=== PATIENT | male | born 1965 | race Caucasian/White ===

== ENCOUNTER 2017-12-02 23:39 | Inpatient (IN) | payer MEDICAID, OTHER ==
[2017-12-03] MEDS: SOD CHLORIDE 0.9% 1,000 ML IV ×3 (00:48→20:40)
[2017-12-03] MEDS: ONDANSETRON 4 MG INJ IV (00:48)
[2017-12-03 00:59] LABS: ALANINE AMINOTRANSFERASE 83 IU/L (13-69); ALBUMIN/GLOBULIN RATIO 0.71; ALKALINE PHOSPHATASE 653 IU/L (42-121); ANION GAP 13 (8-16); ASPARTATE AMINO TRANSFERASE 64 IU/L (15-46); BILIRUBIN,INDIRECT 0.7 mg/dl (0-1.1); BILIRUBIN,TOTAL 0.7 mg/dl (0.2-1.3); BLOOD UREA NITROGEN 11 mg/dl (7-20); CALCIUM 8.1 mg/dl (8.4-10.2); CARBON DIOXIDE 23 mmol/L (21-31); CHLORIDE 106 mmol/L (97-110); CREATININE 0.83 mg/dl (0.61-1.24); GLUCOSE 138 mg/dl (70-220); LIPASE 284 U/L (23-300); POTASSIUM 3.6 mmol/L (3.5-5.1); SODIUM 138 mmol/L (135-144); TOTAL PROTEIN 7.2 g/dl (6.1-8.1)
[2017-12-03 01:07] LABS: ADD UMIC YES; UR ASCORBIC ACID NEGATIVE (NEGATIVE); UR BACTERIA FEW /HPF (NONE SEEN); UR BILIRUBIN (Dip) NEGATIVE (NEGATIVE); UR BLOOD (Dip) NEGATIVE (NEGATIVE); UR CALCIUM OXALATE CRYSTAL MANY /HPF (NONE SEEN); UR CLARITY SLIGHTLY CLOUDY (CLEAR); UR COLOR AMBER (YELLOW); UR GLUCOSE (Dip) NEGATIVE (NEGATIVE); UR KETONES (Dip) NEGATIVE (NEGATIVE); UR LEUKOCYTE ESTERASE (Dip) NEGATIVE Leu/ul (NEGATIVE); UR MUCUS MODERATE /HPF (NONE SEEN); UR NITRITE (Dip) NEGATIVE (NEGATIVE); UR RBC 2 /HPF (0-5); UR SPECIFIC GRAVITY (Dip) 1.025 (1.003-1.030); UR TOTAL PROTEIN (Dip) 1+ mg/dl (NEGATIVE); UR UROBILINOGEN (Dip) 1+ mg/dL (NEGATIVE); UR WBC 0 /HPF (0-5)
[2017-12-03 01:08] LABS: ABNORMAL IP MESSAGE 1; MEAN CORPUSCULAR HEMOGLOBIN 19.5 pg (29.0-33.0); MEAN CORPUSCULAR HGB CONC 27.6 g/dl (32.0-37.0); MEAN CORPUSCULAR VOLUME 70.8 fl (82.0-101.0); MEAN PLATELET VOLUME 10.1 fl (7.4-10.4); PLATELET COUNT 217 10^3/UL (140-415); POSITIVE DIFF @See below; RED BLOOD COUNT 3.53 10^6/ul (4.70-6.10); RED CELL DISTRIBUTION WIDTH 18.4 % (11.5-14.5)
[2017-12-03 01:08] LABS: WHITE BLOOD COUNT 6.1 10^3/ul (4.8-10.8)
[2017-12-03 01:12] LABS: HEMOGLOBIN 6.9 g/dl (14.0-18.0)
[2017-12-03 01:13] LABS: ADD MAN DIFF? YES; PATH REVIEW? YES
[2017-12-03 01:31] LABS: INR 1.08; PROTIME 14.1 Sec (11.9-14.9); PT RATIO 1.1
[2017-12-03 02:51] LABS: ANISOCYTOSIS 2+ (0-0); BAND NEUTROPHILS % (M) 1 % (0-4); BASOPHILS % (M) 1 % (0-2); EOSINOPHILS % (M) 1 % (0-7); GIANT THROMBO% (M) 1 % (0-0); HYPOCHROMASIA 2+ (0-0); LYMPHOCYTES #M 0.9 10^3/ul (0.8-2.9); LYMPHOCYTES % (M) 16 % (15-51); MICROCYTOSIS 2+ (0-0); MONOCYTE #M 0.2 10^3/ul (0.3-0.9); MONOCYTES % (M) 4 % (0-11); MYELOCYTES % (M) 1 % (0-0); PLATELET ESTIMATE NORMAL; POIKILOCYTOSIS 1+ (0-0); SEG NEUT #M 4.6 10^3/ul (1.6-7.5); SEGMENTED NEUTROPHILS (M) % 75 % (39-77); SMUDGE%M 2 % (0-0)
[2017-12-03 03:08] LABS: PARTIAL THROMBOPLASTIN TIME 31.6 Sec (25.0-35.0)
[2017-12-03 03:32] LABS: IMMEDIATE SPIN CROSSMATCH 1 2
[2017-12-03] MEDS ORDERED: NACL 0.9% 3 ML SYG IV (04:00)
[2017-12-03] MEDS ORDERED: METHYLPREDNISOLONE 125 MG INJ IV (04:00)
[2017-12-03] MEDS ORDERED: ONDANSETRON 4 MG INJ IV (04:00)
[2017-12-03] MEDS ORDERED: ACETAMINOPHEN 325 MG TAB PO (04:00)
[2017-12-03 04:21] LABS: AMMONIA < 9 umol/l (9-30)
[2017-12-03 06:03] LABS: ADD MAN DIFF? NO; HAAIG REFLEX REFLEX FILED
[2017-12-03 06:15] LABS: ABNORMAL IP MESSAGE 1; BASOPHILS % 0.6 % (0.0-2.0); EOSINOPHILS # 0.1 10^3/ul (0.0-0.5); EOSINOPHILS % 1.8 % (0.0-7.0); HEMATOCRIT 26.5 % (42.0-52.0); HEMOGLOBIN 7.4 g/dl (14.0-18.0); LYMPHOCYTES # 1.3 10^3/ul (0.8-2.9); LYMPHOCYTES % 25.2 % (15.0-51.0); MEAN CORPUSCULAR HEMOGLOBIN 19.9 pg (29.0-33.0); MEAN CORPUSCULAR HGB CONC 27.9 g/dl (32.0-37.0); MEAN CORPUSCULAR VOLUME 71.2 fl (82.0-101.0); MEAN PLATELET VOLUME 10.5 fl (7.4-10.4); MONOCYTE # 0.7 10^3/ul (0.3-0.9); MONOCYTES % 13.3 % (0.0-11.0); NEUTROPHILS % 58.9 % (39.0-77.0); PLATELET COUNT 210 10^3/UL (140-415); POSITIVE DIFF @See below; RED BLOOD COUNT 3.72 10^6/ul (4.70-6.10); RED CELL DISTRIBUTION WIDTH 18.9 % (11.5-14.5)
[2017-12-03] MEDS: PANTOPRAZOLE (EC) 40 MG TAB PO (06:38)
[2017-12-03 06:44] LABS: ALBUMIN/GLOBULIN RATIO 0.76; ALKALINE PHOSPHATASE 576 IU/L (42-121); ANION GAP 13 (8-16); ASPARTATE AMINO TRANSFERASE 56 IU/L (15-46); BILIRUBIN,INDIRECT 1.3 mg/dl (0-1.1); BILIRUBIN,TOTAL 1.3 mg/dl (0.2-1.3); BLOOD UREA NITROGEN 10 mg/dl (7-20); CALCIUM 7.8 mg/dl (8.4-10.2); CARBON DIOXIDE 23 mmol/L (21-31); CHLORIDE 107 mmol/L (97-110); CHOL/HDL RATIO 4.9 RATIO; CHOLESTEROL 114 mg/dl (100-200); CREATININE 0.75 mg/dl (0.61-1.24); GLUCOSE 115 mg/dl (70-220); HDL CHOLESTEROL 23 mg/dl (28-71); LDL CHOLESTEROL,CALCULATED 79 mg/dl; POTASSIUM 3.5 mmol/L (3.5-5.1); SODIUM 139 mmol/L (135-144); TOTAL PROTEIN 6.9 g/dl (6.1-8.1); TRIGLYCERIDES 59 mg/dl (0-149)
[2017-12-03 06:46] LABS: C-REACTIVE PROTEIN 4.9 mg/dl (0.0-0.9)
[2017-12-03 07:09] LABS: HEMOGLOBIN A1C 5.4 % (0-5.9)
[2017-12-03 07:51] LABS: ERYTHROCYTE SEDIMENTATION RATE 27 mm/Hr (0-20)
[2017-12-03 07:56] LABS: HEPATITIS B SURFACE ANTIGEN NEGATIVE (NEGATIVE)
[2017-12-03 07:59] LABS: ALANINE AMINOTRANSFERASE 75 IU/L (13-69)
[2017-12-03 08:12] LABS: HEPATITIS B SURFACE ANTIBODY POSITIVE (NEGATIVE)
[2017-12-03 08:14] LABS: HEPATITIS B CORE ANTIBODY NEGATIVE (NEGATIVE); HEPATITIS C VIRAL ANTIBODY NEGATIVE (NEGATIVE)
[2017-12-03 08:31] LABS: THYROID STIMULATING HORMONE 0.923 MIU/L (0.465-4.680)
[2017-12-03] MEDS ORDERED: MESALAMINE (SR) 250 MG CAP PO (09:00)
[2017-12-03 09:35] LABS: ALPHA FETOPROTEIN 1.52 IU/L (0.00-7.21)
[2017-12-03] MEDS: morphine 2 MG INJ IV (10:44)
[2017-12-03] MEDS: ASCORBIC ACID 500 MG TAB PO (10:44)
[2017-12-03] MEDS ORDERED: METHYLPREDNISOLONE 40 MG INJ IV (12:00)
[2017-12-03] MEDS: SOD CHLORIDE 0.9% 250 ML IV (12:02)
[2017-12-03] MEDS: BISACODYL (EC) 5 MG TAB PO (13:52)
[2017-12-03 16:49] LABS: OCCULT BLOOD STOOL POSITIVE (NEGATIVE)
[2017-12-03 18:07] LABS: ADD MAN DIFF? NO
[2017-12-03] MEDS: POLYETHYLENE GLYCOL 3350 119 GM POWDER PO (18:07)
[2017-12-03 18:08] LABS: ABNORMAL IP MESSAGE 1; BASOPHIL # 0.1 10^3/ul (0.0-0.1); BASOPHILS % 0.7 % (0.0-2.0); EOSINOPHILS # 0.3 10^3/ul (0.0-0.5); EOSINOPHILS % 3.8 % (0.0-7.0); HEMATOCRIT 31.1 % (42.0-52.0); HEMOGLOBIN 8.8 g/dl (14.0-18.0); LYMPHOCYTES # 1.5 10^3/ul (0.8-2.9); MEAN CORPUSCULAR HEMOGLOBIN 20.6 pg (29.0-33.0); MEAN CORPUSCULAR HGB CONC 28.3 g/dl (32.0-37.0); MEAN CORPUSCULAR VOLUME 72.7 fl (82.0-101.0); MEAN PLATELET VOLUME 9.3 fl (7.4-10.4); MONOCYTE # 0.8 10^3/ul (0.3-0.9); MONOCYTES % 10.7 % (0.0-11.0); NEUTROPHIL # 4.8 10^3/ul (1.6-7.5); NEUTROPHILS % 64.5 % (39.0-77.0); PLATELET COUNT 208 10^3/UL (140-415); POSITIVE DIFF @See below; RED BLOOD COUNT 4.28 10^6/ul (4.70-6.10); RED CELL DISTRIBUTION WIDTH 19.9 % (11.5-14.5)
[2017-12-03 18:08] LABS: WHITE BLOOD COUNT 7.4 10^3/ul (4.8-10.8)
[2017-12-03] MEDS: MAGNESIUM CITRATE 300 ML BTL PO (18:12)
[2017-12-04 00:47] LABS: ADD MAN DIFF? NO
[2017-12-04 00:48] LABS: WHITE BLOOD COUNT 6.2 10^3/ul (4.8-10.8)
[2017-12-04 00:49] LABS: ABNORMAL IP MESSAGE 1; BASOPHILS % 0.6 % (0.0-2.0); EOSINOPHILS # 0.3 10^3/ul (0.0-0.5); HEMOGLOBIN 8.5 g/dl (14.0-18.0); LYMPHOCYTES # 1.2 10^3/ul (0.8-2.9); LYMPHOCYTES % 19.2 % (15.0-51.0); MEAN CORPUSCULAR HEMOGLOBIN 20.4 pg (29.0-33.0); MEAN CORPUSCULAR HGB CONC 28.3 g/dl (32.0-37.0); MEAN CORPUSCULAR VOLUME 72.1 fl (82.0-101.0); MEAN PLATELET VOLUME 9.9 fl (7.4-10.4); MONOCYTE # 0.6 10^3/ul (0.3-0.9); MONOCYTES % 9.2 % (0.0-11.0); NEUTROPHIL # 4.1 10^3/ul (1.6-7.5); NEUTROPHILS % 65.7 % (39.0-77.0); PLATELET COUNT 218 10^3/UL (140-415); POSITIVE DIFF @See below; RED BLOOD COUNT 4.16 10^6/ul (4.70-6.10); RED CELL DISTRIBUTION WIDTH 19.4 % (11.5-14.5)
[2017-12-04] MEDS: morphine 2 MG INJ IV ×2 (01:09→10:44)
[2017-12-04] MEDS: SOD CHLORIDE 0.9% 1,000 ML IV ×2 (01:10→23:38)
[2017-12-04] MEDS: POLYETHYLENE GLYCOL 3350 119 GM POWDER PO (06:25)
[2017-12-04] MEDS: PANTOPRAZOLE (EC) 40 MG TAB PO (06:26)
[2017-12-04] MEDS: BISACODYL (EC) 5 MG TAB PO (08:19)
[2017-12-04] MEDS: ASCORBIC ACID 500 MG TAB PO (08:19)
[2017-12-04] MEDS: PROPOFOL 60 ML (14:22)
[2017-12-04] MEDS: LIDOCAINE 2% (SDV) 5 ML INJ (14:22)
[2017-12-04] MEDS: MESALAMINE 4 GM/60 ML ENEMA PR (21:15)
[2017-12-04] MEDS: morphine LIQ (10 MG/5 ML) CUP PO (21:16)
[2017-12-05] MEDS: ZOLPIDEM 5 MG TAB PO (00:12)
[2017-12-05] MEDS: PANTOPRAZOLE (EC) 40 MG TAB PO (06:14)
[2017-12-05] MEDS: morphine LIQ (10 MG/5 ML) CUP PO ×2 (06:18→11:18)
[2017-12-05 08:20] LABS: ADD MAN DIFF? NO
[2017-12-05 08:26] LABS: WHITE BLOOD COUNT 4.6 10^3/ul (4.8-10.8)
[2017-12-05 08:26] LABS: ABNORMAL IP MESSAGE 1; BASOPHILS % 0.7 % (0.0-2.0); EOSINOPHILS # 0.2 10^3/ul (0.0-0.5); EOSINOPHILS % 3.5 % (0.0-7.0); HEMATOCRIT 27.9 % (42.0-52.0); HEMOGLOBIN 8.2 g/dl (14.0-18.0); LYMPHOCYTES # 0.8 10^3/ul (0.8-2.9); LYMPHOCYTES % 17.8 % (15.0-51.0); MEAN CORPUSCULAR HEMOGLOBIN 21.1 pg (29.0-33.0); MEAN CORPUSCULAR HGB CONC 29.4 g/dl (32.0-37.0); MEAN CORPUSCULAR VOLUME 71.9 fl (82.0-101.0); MONOCYTE # 0.4 10^3/ul (0.3-0.9); MONOCYTES % 8.2 % (0.0-11.0); NEUTROPHIL # 3.2 10^3/ul (1.6-7.5); NEUTROPHILS % 69.4 % (39.0-77.0); PLATELET COUNT 231 10^3/UL (140-415); POSITIVE DIFF @See below; RED BLOOD COUNT 3.88 10^6/ul (4.70-6.10); RED CELL DISTRIBUTION WIDTH 19.9 % (11.5-14.5)
[2017-12-05 08:49] LABS: ALANINE AMINOTRANSFERASE 114 IU/L (13-69); ALBUMIN 2.2 g/dl (3.3-4.9); ALBUMIN/GLOBULIN RATIO 0.61; ALKALINE PHOSPHATASE 594 IU/L (42-121); ANION GAP 10 (8-16); ASPARTATE AMINO TRANSFERASE 149 IU/L (15-46); BILIRUBIN,INDIRECT 0.9 mg/dl (0-1.1); BILIRUBIN,TOTAL 0.9 mg/dl (0.2-1.3); BLOOD UREA NITROGEN 11 mg/dl (7-20); CALCIUM 7.8 mg/dl (8.4-10.2); CARBON DIOXIDE 25 mmol/L (21-31); CHLORIDE 106 mmol/L (97-110); CREATININE 0.81 mg/dl (0.61-1.24); GLUCOSE 97 mg/dl (70-220); MAGNESIUM 1.6 mg/dl (1.7-2.5); POTASSIUM 3.9 mmol/L (3.5-5.1); SODIUM 137 mmol/L (135-144); TOTAL PROTEIN 5.8 g/dl (6.1-8.1)
[2017-12-05] MEDS: ASCORBIC ACID 500 MG TAB PO (09:35)
[2017-12-05] MEDS: MAGNESIUM SULFATE 2 GM/50 ML 50 ML IVPB (11:18)
[2017-12-05 11:56] LABS: MITOCHONDRIAL TB NEGATIVE (NEGATIVE); SMOOTH MUSCLE AB SCREEN NEGATIVE (NEGATIVE)
[2017-12-05 13:31] LABS: ANA SCREEN NEGATIVE (NEGATIVE)
[2017-12-05 17:32] LABS: ALPHA 1 ANTITRYPSIN 247 mg/dL (83-199)
== END 2017-12-05 18:37 | disposition home or self-care (01) | DRG 389 ==
LOC: FTE 23:39 → PP2 12-03 05:00
PROC: 0DBP8ZX Excision of Rectum, Via Natural or Artificial Opening Endoscopic, Diagnostic (ICD-10-PCS; principal; 2017-12-04 14:00)
PROC: 0DB78ZX Excision of Stomach, Pylorus, Via Natural or Artificial Opening Endoscopic, Diagnostic (ICD-10-PCS; 2017-12-04 14:00)
PROC: 30233N1 Transfusion of Nonautologous Red Blood Cells into Peripheral Vein, Percutaneous Approach (ICD-10-PCS; 2017-12-04 14:00)
DX: K56.7 Ileus, unspecified (principal); K51.00 Ulcerative (chronic) pancolitis without complications; K76.6 Portal hypertension; K66.0 Peritoneal adhesions (postprocedural) (postinfection); D50.0 Iron deficiency anemia secondary to blood loss (chronic); K74.69 Other cirrhosis of liver; K80.20 Calculus of gallbladder without cholecystitis without obstruction; K26.9 Duodenal ulcer, unspecified as acute or chronic, without hemorrhage or perforation; K31.89 Other diseases of stomach and duodenum; Z90.49 Acquired absence of other specified parts of digestive tract; Z85.038 Personal history of other malignant neoplasm of large intestine; Z87.891 Personal history of nicotine dependence
CPT/HCPCS: 36415; 36430; 74176; 76705; 80053; 80061; 81001; 82103; 82105; 82140; 82270; 83036; 83690; 83735; 84443; 85025; 85610; 85651; 85730; 86038; 86140; 86255; 86644; 86704; 86706; 86708; 86709; 86803; 86850; 86900; 86901; 86920; 87045; 87177; 87205; 87340; 88305; 88312; 93005; 96374; 99285-25

== ENCOUNTER 2018-05-11 11:41 | Emergency (ER) | payer OTHER, MEDICAID ==
[2018-05-11] MEDS: SOD CHLORIDE 0.9% 1,000 ML IV (13:20)
[2018-05-11] MEDS: morphine 4 MG/ML VIAL IV ×2 (13:20→16:16)
[2018-05-11] MEDS: ONDANSETRON 4 MG INJ IV ×2 (13:20→16:16)
[2018-05-11 13:22] LABS: ADD MAN DIFF? NO
[2018-05-11 13:26] LABS: WHITE BLOOD COUNT 4.9 10^3/ul (4.8-10.8)
[2018-05-11 13:26] LABS: ABNORMAL IP MESSAGE 1; BASOPHILS % 0.6 % (0.0-2.0); EOSINOPHILS % 0.8 % (0.0-7.0); HEMATOCRIT 35.4 % (42.0-52.0); LYMPHOCYTES % 20.3 % (15.0-51.0); MEAN CORPUSCULAR HEMOGLOBIN 19.2 pg (29.0-33.0); MEAN CORPUSCULAR HGB CONC 28.2 g/dl (32.0-37.0); MEAN CORPUSCULAR VOLUME 67.8 fl (82.0-101.0); MONOCYTE # 0.9 10^3/ul (0.3-0.9); MONOCYTES % 17.8 % (0.0-11.0); NEUTROPHIL # 2.9 10^3/ul (1.6-7.5); NEUTROPHILS % 59.9 % (39.0-77.0); PLATELET COUNT 262 10^3/UL (140-415); POSITIVE DIFF @See below; RED BLOOD COUNT 5.22 10^6/ul (4.70-6.10)
[2018-05-11 13:33] LABS: ADD UMIC YES; UR ASCORBIC ACID NEGATIVE (NEGATIVE); UR BILIRUBIN (Dip) 1+ mg/dL (NEGATIVE); UR BLOOD (Dip) NEGATIVE (NEGATIVE); UR CLARITY SLIGHTLY CLOUDY (CLEAR); UR COLOR AMBER (YELLOW); UR GLUCOSE (Dip) NEGATIVE (NEGATIVE); UR HYALINE CAST FEW /HPF (NONE SEEN); UR KETONES (Dip) NEGATIVE (NEGATIVE); UR LEUKOCYTE ESTERASE (Dip) NEGATIVE Leu/ul (NEGATIVE); UR MUCUS MANY /HPF (NONE SEEN); UR NITRITE (Dip) NEGATIVE (NEGATIVE); UR RBC 0 /HPF (0-5); UR SPECIFIC GRAVITY (Dip) 1.029 (1.003-1.030); UR SQUAMOUS EPITHELIAL CELL FEW /HPF (FEW); UR TOTAL PROTEIN (Dip) 1+ mg/dl (NEGATIVE); UR UROBILINOGEN (Dip) 1+ mg/dL (NEGATIVE); UR WBC 2 /HPF (0-5)
[2018-05-11 13:51] LABS: ALANINE AMINOTRANSFERASE 98 IU/L (13-69); ALBUMIN 4.2 g/dl (3.3-4.9); ALKALINE PHOSPHATASE 580 IU/L (42-121); ANION GAP 14 (5-13); ASPARTATE AMINO TRANSFERASE 121 IU/L (15-46); BILIRUBIN,INDIRECT 0.8 mg/dl (0-1.1); BILIRUBIN,TOTAL 0.8 mg/dl (0.2-1.3); BLOOD UREA NITROGEN 29 mg/dl (7-20); CALCIUM 9.2 mg/dl (8.4-10.2); CARBON DIOXIDE 22 mmol/L (21-31); CHLORIDE 103 mmol/L (97-110); CREATININE 1.39 mg/dl (0.61-1.24); Estimated GFR 53 mL/min (>60); GLUCOSE 110 mg/dl (70-220); LIPASE 37 U/L (23-300); POTASSIUM 4.1 mmol/L (3.5-5.1); SODIUM 139 mmol/L (135-144); TOTAL PROTEIN 8.4 g/dl (6.1-8.1)
== END 2018-05-11 17:00 | disposition home or self-care (01) ==
LOC: E/R 11:41
DX: D64.9 Anemia, unspecified (principal); K76.9 Liver disease, unspecified; C18.9 Malignant neoplasm of colon, unspecified
CPT/HCPCS: 36415; 71045; 74176; 80053; 81001; 83690; 85025; 96374; 96375; 96376; 99285-25